=== PATIENT | female | born 1980 | race Caucasian/White ===

== ENCOUNTER 2023-07-23 17:26 | Emergency (ER) | payer SELFPAY ==
--- NOTE | 2023-07-23 17:28 | ECG_ITS ---
Measurements Intervals [place] Rate: 81 P: 20 PA: 112 QRS: 36 QRSD: 82 T: 30 QT: 359 QTc: 418 Interpretive Statements SINUS RHYTHM LOW QRS VOLTAGE IN PRECORDIAL LEADS [QRS DEFLECTION < 1.0 mV IN CHEST LEADS] OTHERWISE NORMAL ELECTROCARDIOGRAM NO PREVIOUS ECG AVAILABLE FOR COMPARISON Electronically Signed On 07-24-2023 7:39:21 CDT by Eric Calderon M.D.
== END 2023-07-23 18:10 | disposition left against medical advice (07) ==
PROVIDERS: Emergency Provider Student in an Organized Health Care Education/Training Program; PCP Physician Assistant Medical
DX: M25.511 Pain in right shoulder (principal)
CPT/HCPCS: 93005; 99199